=== PATIENT | male | born 1985 | race Caucasian/White ===

== ENCOUNTER 2017-05-05 23:53 | Inpatient (IN) | payer OTHER ==
[~2017-05-05] VITALS: Ht 162.6 cm; Wt 70.0 kg
[2017-05-06] VITALS (9 sets, daily range): BP systolic 118–156; BP diastolic 71–105; PULSE 84–99; RESP 16–19; TEMP 97.6–98.8; O2SAT 95–100
[2017-05-06] MEDS ORDERED: CLON.5 PO (00:13)
[2017-05-06] MEDS ORDERED: NAPR500T2 PO (00:13)
[2017-05-06] MEDS ORDERED: HYDR-3578 PO (00:13)
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
[2017-05-06] MEDS ORDERED: ONDANSETRON HCL 4 MG/2 ML VIAL IV PUSH ONE (00:30)
[2017-05-06] MEDS ORDERED: NS + KCL 20 MEQ INJ 1,000 ML IV SCH (00:30)
[2017-05-06] MEDS ORDERED: MORPHINE SULFATE 4 MG/ML INJ IV PUSH ONE (00:30)
[2017-05-06] MEDS ORDERED: ACETAMINOPHEN 500 MG CPLT PO PRN (03:45)
[2017-05-06] MEDS: NS + KCL 20 MEQ INJ 1,000 ML IV SCH ×3 (04:00→22:21)
[2017-05-06] MEDS: MORPHINE SULFATE 4 MG/ML INJ IV PUSH PRN ×7 (04:00→22:21)
[2017-05-06] MEDS ORDERED: DEXAMETHASONE SOD PHOS 20 MG/5 ML VIAL IV PUSH ONE (08:00)
--- NOTE | 2017-05-06 08:21 | PD.ORT.PN ---
Subjective Subjective Remarks Transfer from position or sitting due to complex left tibia plateau fracture. He is a long-leg splint. He has no other orthopedic complaints. He did not hit his head or lose consciousness Objective Vitals Vital Signs Date Time Temp Pulse Resp B/P (MAP) Pulse Ox O2 Delivery O2 Flow Rate FiO2 05/06/17 07:33 98.4 91 19 126/71 (89) 97 05/06/17 06:47 18 05/06/17 03:43 05/06/17 03:42 98.4 98 17 137/86 (103) 97 05/06/17 03:30 89 16 118/82 (94) 95 Room Air 05/06/17 00:55 93 16 124/74 (91) 96 Room Air 05/06/17 00:04 98.5 99 16 156/105 (122) 100 I/O 05/05/17 05/05/17 05/05/17 05/06/17 05/06/17 05/06/17 07:00 15:00 23:00 07:00 15:00 23:00 Intake Total 0 ml Balance 0 ml Intake Oral 0 ml # Voids 0 # Bowel Movements 0 Objective Remarks Left lower extremity: No pain with hip range of motion. Splint intact. Window was cut in Ashvin wrap to evaluate swelling. He has swelling of the +3 and compartments are semi-soft. His intact sensation distally and good capillary refills distally. He is able to move all his toes without any significant discomfort. Assessment & Plan Assessment and Plan Left bicondylar tibial plateau fracture Nonweightbearing left lower extremity Maintain splint Nothing by mouth after midnight We'll reevaluate swelling tomorrow. If swelling increases external fixation may be necessary before definitive fixation. Continue to ice and elevate left lower extremity Rios Arteaga Jr. May 06, 2017 08:21
[2017-05-06] MEDS ORDERED: CALCTAB19 PO (08:22)
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
[2017-05-06] MEDS: SODIUM CHLORIDE 0.9% FLUSH 10 ML FLUSH IV FLUSH SCH ×2 (09:00→20:37)
[2017-05-06] MEDS: ONDANSETRON HCL 4 MG/2 ML VIAL IV PUSH PRN ×2 (09:51→15:52)
[2017-05-06] MEDS: KETOROLAC TROMETHAMINE 30 MG/ML (IVP) VIAL IV PUSH SCH ×2 (12:17→17:27)
[2017-05-07] MEDS: KETOROLAC TROMETHAMINE 30 MG/ML (IVP) VIAL IV PUSH SCH ×4 (00:18→18:26)
[2017-05-07] MEDS ORDERED: SODIUM CHLORID 0.9% 500 ML IV PRN (01:00)
[2017-05-07] MEDS ORDERED: POVIDONE IODINE 5% (ANTISEPSIS KIT) 4 APPLICATIONS EACH NARE PRN (01:00)
[2017-05-07] MEDS ORDERED: CHLORHEXIDINE GLUCONATE 2 % 1 PACK (2 CLOTHS) TOPICAL PRN (01:00)
[2017-05-07] MEDS: MORPHINE SULFATE 4 MG/ML INJ IV PUSH PRN ×7 (01:37→21:48)
[2017-05-07 03:17] VITALS: BP 130/69; PULSE 81; RESP 17; TEMP 98.4; O2SAT 97
[2017-05-07] MEDS: LACTATED RINGER'S 1000 ML IV PRN (05:17)
[2017-05-07 07:20] LABS: PROTHROMBIN TIME - PATIENT 10.4 SEC (9.8-11.6)
[2017-05-07 07:28] LABS: BASOPHIL % 0.1 % (0.0-2.0); HEMATOCRIT 31.6 % (39.0-51.0); HEMOGLOBIN 10.8 GM/DL (13.0-17.0); LYMPH % 9.7 % (9.0-44.0); LYMPHOCYTE # 1.6 TH/MM3 (1.0-4.8); MEAN CELL VOLUME 101.1 FL (80.0-100.0); MEAN CORPUSCULAR HEMOGLOBIN 34.5 PG (27.0-34.0); MEAN CORPUSCULAR HGB CONC 34.1 % (32.0-36.0); MEAN PLATELET VOLUME 7.9 FL (7.0-11.0); MONO % 6.9 % (0.0-8.0); MONOCYTE # 1.2 TH/MM3 (0-0.9); NEUT % 83.3 % (16.0-70.0); PLATELET COUNT 393 TH/MM3 (150-450); RED BLOOD COUNT 3.13 MIL/MM3 (4.50-5.90); RED CELL DISTRIBUTION WIDTH 13.4 % (11.6-17.2); WHITE BLOOD COUNT 16.8 TH/MM3 (4.0-11.0)
[2017-05-07 08:00] VITALS: BP 130/72; PULSE 83; RESP 18; TEMP 97.3; O2SAT 95
--- NOTE | 2017-05-07 08:37 | PD.ORT.PN ---
Subjective Subjective Remarks Pain controlled. Has continue to ice and elevate his left lower extremity Objective Vitals Vital Signs Date Time Temp Pulse Resp B/P (MAP) Pulse Ox O2 Delivery O2 Flow Rate FiO2 05/07/17 06:05 18 05/07/17 05:22 18 05/07/17 03:17 98.4 81 17 130/69 (89) 97 05/07/17 00:08 Room Air 05/06/17 23:45 98.2 86 18 148/87 (107) 97 05/06/17 18:54 98.8 96 18 143/74 (97) 97 05/06/17 15:38 97.6 84 19 146/72 (96) 96 05/06/17 11:26 98.3 92 19 123/80 (94) 96 I/O 05/06/17 05/06/17 05/06/17 05/07/17 05/07/17 05/07/17 07:00 15:00 23:00 07:00 15:00 23:00 Intake Total 0 ml 950 ml 1000 ml 1020 ml Output Total 680 ml 1700 ml Balance 0 ml 270 ml 1000 ml -680 ml Intake Oral 0 ml 950 ml 1020 ml IV Total 1000 ml Output Urine Total 680 ml 1700 ml # Voids 0 # Bowel Movements 0 1 Result Diagram: 05/07/17 0630 Other Results Laboratory Tests Test 05/07/17 06:30 Prothromb Time International Ratio 1.0 RATIO Prothrombin Time 10.4 SEC (9.8-11.6) Objective Remarks Left lower extremity: No pain with hip range of motion. Splint intact. Window was cut in Ashvin wrap to evaluate swelling. He has swelling of the +2 and compartments are semi-soft. His intact sensation distally and good capillary refills distally. He is able to move all his toes without any significant discomfort. Assessment & Plan Assessment and Plan Left bicondylar tibial plateau fracture Nonweightbearing left lower extremity Maintain splint Resume diet then nothing by mouth after midnight tonight Swelling is continue to improve and with continued elevation and ice there is a good possibility that surgery may be proceeded with tomorrow. He understands that surgery will entail open reduction internal fixation with allograft bone graft Rios Arteaga Jr. May 07, 2017 08:37
[2017-05-07] MEDS: SODIUM CHLORIDE 0.9% FLUSH 10 ML FLUSH IV FLUSH SCH ×2 (09:00→21:00)
[2017-05-07] MEDS: NS + KCL 20 MEQ INJ 1,000 ML IV SCH ×2 (09:19→21:48)
[2017-05-07 11:54] VITALS: BP 127/60; PULSE 92; RESP 18; TEMP 98.3; O2SAT 97
[2017-05-07 16:00] VITALS: BP 124/68; PULSE 73; RESP 16; TEMP 98.4; O2SAT 96
--- NOTE | 2017-05-07 18:54 | RADRPT ---
EXAM DATE/TIME: 05/06/2017 01:38 [facility] COMPARISON: No previous studies available for comparison. INDICATIONS : Left knee pain and swelling after trauma.. RADIATION DOSE: 7.29 CTDIvol (mGy) MEDICAL HISTORY : None SURGICAL HISTORY : None. ENCOUNTER: Initial ACUITY: 1 day PAIN SCALE: 8/10 LOCATION: Left knee TECHNIQUE: Volumetric scanning and 3D reconstructions of the knee were performed. Using automated exposure cont rol and adjustment of the mA and/or kV according to patient size, radiation dose was kept as low as r easonably achievable to obtain optimal diagnostic quality images. DICOM format image data is availab le electronically for review and comparison. FINDINGS: There is a moderately comminuted fracture deformity involving the proximal tibia with multiple v ertical and oblique fracture lines. Multiple fracture lines extend into both tibial plateaus. The lar gest fracture is a vertical fracture which extends through the more inferior cortex medial tibial cor angelique approximately 7 cm below the joint. There is mild depression of the posterior lateral tibial plat eau of approximately 5 mm. The proximal fibula is intact. The patella and distal femur are intact. Mo derate joint effusion is present. There is surrounding soft tissue swelling. CONCLUSION: 1. Moderately comminuted fracture deformity on the proximal tibia with mild depression of a portion o f the posterior lateral tibial plateau. 2. Moderate joint effusion. Rios Holland MD on May 06, 2017 at 2:09 Board Certified Radiologist. This report was verified electronically.
[2017-05-07 20:00] VITALS: BP 143/73; PULSE 98; RESP 18; TEMP 98.7; O2SAT 97
[2017-05-07 23:34] VITALS: BP 142/68; PULSE 78; RESP 15; TEMP 97.8; O2SAT 98
[2017-05-08] MEDS: MORPHINE SULFATE 4 MG/ML INJ IV PUSH PRN ×7 (00:53→21:02)
[2017-05-08 07:51] VITALS: BP 135/88; PULSE 76; RESP 17; TEMP 98; O2SAT 96
[2017-05-08] MEDS: KETOROLAC TROMETHAMINE 30 MG/ML (IVP) VIAL IV PUSH SCH ×3 (07:52→18:04)
[2017-05-08] MEDS: SODIUM CHLORIDE 0.9% FLUSH 10 ML FLUSH IV FLUSH SCH ×2 (07:52→21:00)
[2017-05-08 11:53] VITALS: BP 124/58; PULSE 81; RESP 17; TEMP 97.8; O2SAT 96
--- NOTE | 2017-05-08 12:51 | PD.ORT.PN ---
Subjective Subjective Remarks s/p left tibial plateau fx. no changes. doing well. Objective Vitals Vital Signs Date Time Temp Pulse Resp B/P (MAP) Pulse Ox O2 Delivery O2 Flow Rate FiO2 05/08/17 11:53 97.8 81 17 124/58 (80) 96 05/08/17 07:51 98.0 76 17 135/88 (104) 96 05/07/17 23:34 97.8 78 15 142/68 (92) 98 05/07/17 20:00 98.7 98 18 143/73 (96) 97 05/07/17 16:00 98.4 73 16 124/68 (86) 96 I/O 05/07/17 05/07/17 05/07/17 05/08/17 05/08/17 05/08/17 07:00 15:00 23:00 07:00 15:00 23:00 Intake Total 1020 ml 1000 ml 300 ml Output Total 1700 ml 900 ml 900 ml Balance -680 ml -900 ml 1000 ml -600 ml Intake Oral 1020 ml IV Total 1000 ml 300 ml Output Urine Total 1700 ml 900 ml 900 ml # Voids 3 # Bowel Movements 1 Result Diagram: 05/07/17 0630 Objective Remarks Left lower extremity: No pain with hip range of motion. Splint intact. Window was cut in Ashvin wrap to evaluate swelling. He has swelling of the +2 and compartments are semi-soft. His intact sensation distally and good capillary refills distally. He is able to move all his toes without any significant discomfort. Assessment & Plan Assessment and Plan 1) Left bicondylar tibial plateau fracture Nonweightbearing left lower extremity Maintain splint Resume diet then nothing by mouth after midnight tonight Swelling is continue to improve and with continued elevation and ice there is a good possibility that surgery may be proceeded with tomorrow. He understands that surgery will entail open reduction internal fixation with allograft bone graft will plan for sunday Cory Haines/First Vivian ELI May 08, 2017 12:51
[2017-05-08] MEDS: NS + KCL 20 MEQ INJ 1,000 ML IV SCH ×2 (15:45→18:19)
[2017-05-08 16:00] VITALS: BP 131/66; PULSE 76; RESP 17; TEMP 98; O2SAT 96
[2017-05-08 20:18] VITALS: BP 141/80; PULSE 70; RESP 18; TEMP 98.2; O2SAT 98
[2017-05-09] MEDS: MORPHINE SULFATE 4 MG/ML INJ IV PUSH PRN ×7 (00:05→22:33)
[2017-05-09] MEDS: KETOROLAC TROMETHAMINE 30 MG/ML (IVP) VIAL IV PUSH SCH ×3 (00:05→12:00)
[2017-05-09 00:17] VITALS: BP_SYST 131; BP_SYST 152; BP_DIAS 64; BP_DIAS 84; PULSE 77; PULSE 92; RESP 18; TEMP 97.7; O2SAT 97; O2SAT 98
[2017-05-09] MEDS: NS + KCL 20 MEQ INJ 1,000 ML IV SCH ×3 (01:45→19:47)
[2017-05-09] MEDS ORDERED: XARE10TA PO (06:46)
[2017-05-09] MEDS ORDERED: WALKER/ADULT/FO1 MIS (06:46)
[2017-05-09] MEDS ORDERED: HYDR-3583 PO (06:46)
--- NOTE | 2017-05-09 06:51 | PD.ORT.PN ---
Subjective Subjective Remarks Pain controlled. Has continue to ice and elevate his left lower extremity Objective Vitals Vital Signs Date Time Temp Pulse Resp B/P (MAP) Pulse Ox O2 Delivery O2 Flow Rate FiO2 05/09/17 00:17 97.7 77 18 152/84 (106) 97 05/08/17 20:18 98.2 70 18 141/80 (100) 98 05/08/17 16:00 98.0 76 17 131/66 (87) 96 05/08/17 11:53 97.8 81 17 124/58 (80) 96 05/08/17 07:51 98.0 76 17 135/88 (104) 96 I/O 05/08/17 05/08/17 05/08/17 05/09/17 05/09/17 05/09/17 07:00 15:00 23:00 07:00 15:00 23:00 Intake Total 300 ml 480 ml 1000 ml 0 ml Output Total 900 ml 800 ml Balance -600 ml 480 ml 200 ml 0 ml Intake Oral 480 ml 0 ml IV Total 300 ml 1000 ml Output Urine Total 900 ml 800 ml # Voids 3 5 2 # Bowel Movements 0 0 Result Diagram: 05/07/17 0630 Objective Remarks Left lower extremity: No pain with hip range of motion. Splint intact. Window was cut in Ashvin wrap to evaluate swelling. He has swelling of the +2 and compartments are semi-soft. His intact sensation distally and good capillary refills distally. He is able to move all his toes without any significant discomfort. Assessment & Plan Assessment and Plan 1) Left bicondylar tibial plateau fracture Nonweightbearing left lower extremity Maintain splint Nothing by mouth Surgery this morning for open reduction internal fixation of left tibia plateau with allograft bone graft Rios Arteaga Jr. May 09, 2017 06:51
[2017-05-09 07:47] VITALS: BP 122/78; PULSE 69; RESP 18; TEMP 98.2; O2SAT 95
[2017-05-09] MEDS: LACTATED RINGER'S 1000 ML IV PRN (08:00)
[2017-05-09] MEDS: SODIUM CHLORIDE 0.9% FLUSH 10 ML FLUSH IV FLUSH PRN ×2 (08:06→09:03)
[2017-05-09] MEDS ORDERED: ACETAMINOPHEN 1000 MG/100 ML 100 ML IV ONE (08:57)
[2017-05-09] MEDS ORDERED: VANCOMYCIN HCL 1000 MG VIAL ONE (08:58)
[2017-05-09] MEDS ORDERED: ceFAZolin INJ 1,000 MG VIAL ONE (08:58)
[2017-05-09] MEDS ORDERED: GENTAMICIN SULFATE 80 MG/2 ML VIAL ONE (08:58)
[2017-05-09] MEDS ORDERED: SODIUM CHLOR 0.9% 250 ML INJ 250 ML ONE (08:58)
[2017-05-09] MEDS: SODIUM CHLORIDE 0.9% FLUSH 10 ML FLUSH IV FLUSH SCH ×2 (09:00→19:47)
[2017-05-09] MEDS ORDERED: MORPHINE SULFATE 4 MG/ML INJ IV ONE (09:30)
[2017-05-09] MEDS ORDERED: Post-op Orders (for Pharmacy) XX ONE (11:00)
[2017-05-09] MEDS ORDERED: MISCELLANEOUS NURSING INFORMATION XX PRN (11:00)
[2017-05-09] MEDS ORDERED: diphenhydrAMINE HCL 25 MG CAP PO PRN (11:00)
--- NOTE | 2017-05-09 11:00 | PD.OP ---
cc: Aristides Preciado MD Operative Report Date of Surgery: May 09, 2017 Preoperative Diagnosis: Comminuted left tibia bicondylar plateau fracture Postoperative Diagnosis: Procedure: Open reduction and internal fixation bicondylar left tibial plateau fracture Anesthesia: Gen. Surgeon: Aristides Preciado Clamp Jig Assembler(s): BEBE Willis PA-C The surgical procedure was assisted by my physician assistant manager trainee. My P.A. presence was necessary throughout this case for the manipulation and positioning of the surgical extremity. My P.A. was assisting me throughout the duration of this procedure. The skill set of a physician assistant manager trainee was medically necessary to complete this procedure. During the surgical case the surgical instrument technician was working at the back table and the physician assistant manager trainee was directly assisting me. Operation and Findings: This patient was seen and evaluated preoperatively. Patient sustained an injury resulting a left bicondylar tibial plateau fracture. Informed consent was obtained preoperatively after detailed discussion of the risks and benefits of surgery. Risk of surgery including bleeding, infection, nonunion, painful hardware, stiffness, loss of motion, arthritis, need for knee replacement, as well as medical complications including blood clots, stroke, heart attack, and were discussed. I also discussed the possibility of using allograft bone graft . Preoperatively the operative site was marked. Patient was brought to the operating room and placed on the operating room table. Intravenous sedation and general endotracheal anesthesia were administered. IV antibiotics were given and a time out procedure was preformed. The operative leg was prepped with alcohol followed by Hibiclens and draped in the usual sterile fashion. Procedure began with a 4-inch curvilinear incision over the anterolateral knee. Subcutaneous tissue was treated with Bovie. Iliotibial band was split in line with fibers. A sub-meniscal arthrotomy was created and the lateral articular surface was visualized. There was significant comminution and depression of the articular surface. A window was made in the metaphyseal region and bone tamps used to elevate the articular surface. Articular surface reduced into excellent alignment. K-wires were used for provisional fixation. At this point cancellous bone graft was packed under the articular surface using a bone tamp. The cortical fragments were now reduced. Next attention was turned to the medial tibial plateau fragment. Traction was applied. A clamp was placed around the medial plateau. The medial tibial plateau was reduced to the tibial shaft. The medial and lateral plateau fragments were manipulated to achieve appropriate rotational alignment. Multiple K wires result provisional fixation. Fluoroscopy revealed excellent alignment of fracture. A Synthes proximal tibial plate was selected. The plate was provisionally held with K- wires. 3.5 cortical screws were used compress plate to bone distally, and a periarticular clamp was used to compress the medial and lateral tibial plateau fracture fragments together. Multiple locking screws were now placed proximally. Additional screws were placed in the shaft. K-wires were removed. Final fluoroscopy showed excellent alignment of fracture with well- placed hardware. The incision was thoroughly irrigated. Arthrotomy and iliotibial band closed with #1 Vicryl,. Subcutaneous tissues closed with 3-0 Vicryl and skin was closed with young. Sterile dressings were applied. The patient was transferred to recovery in stable condition. Aristides Preciado MD May 09, 2017 11:00
[2017-05-09] MEDS ORDERED: DO NOT ADM ANY ANTICOAGULANT DRUGS PRN (11:15)
[2017-05-09] MEDS ORDERED: *MEPERIDINE 25 MG INJ VIAL PERIprocedural Use ONLY ONE (11:21)
[2017-05-09] MEDS ORDERED: *ONDANSETRON 4 MG VIAL PERIprocedural Use ONLY ONE (11:21)
[2017-05-09] MEDS ORDERED: MIDAZOLAM HCL 2 MG/2 ML VIAL ONE (11:33)
[2017-05-09] MEDS ORDERED: *morphine SULFATE 4 MG/ML PERIprocedure ONLY ONE (11:35)
[2017-05-09] MEDS: LACTATED RINGER'S 1000 ML INJ 1,000 ML IV SCH ×2 (11:50→19:56)
[2017-05-09] MEDS ORDERED: DEXAMETHASONE SOD PHOS 4 MG/ML VIAL IV ONE (12:00)
[2017-05-09] MEDS ORDERED: PROPOFOL 200 MG/20 ML AMP IV ONE (12:00)
[2017-05-09] MEDS ORDERED: LIDOCAINE HCL 1% PF 5 ML SYRINGE OTHER ONE (12:00)
[2017-05-09] MEDS ORDERED: STERILE WATER FOR INJECTION 20 ML VIAL IV ONE (12:00)
[2017-05-09] MEDS ORDERED: LACTATED RINGER'S 1000 ML INJ 1,000 ML IV ONE (12:00)
[2017-05-09] MEDS ORDERED: ONDANSETRON HCL 4 MG/2 ML VIAL IV ONE (12:00)
[2017-05-09] MEDS ORDERED: ROCURONIUM INJ 50 MG/5 ML SYRINGE IV PUSH ONE (12:00)
[2017-05-09] MEDS ORDERED: PHENYLEPH/NS 1000 MCG/10 ML SYR IV ONE (12:00)
--- NOTE | 2017-05-09 12:50 | RADRPT ---
EXAM DATE/TIME: 05/09/2017 10:36 [facility] COMPARISON: No previous studies available for comparison. INDICATIONS : Left knee/tibial plateau open reduction internal fixation. MEDICAL HISTORY : None. SURGICAL HISTORY : None. ENCOUNTER: Initial ACUITY: 1 day PAIN SCORE: Non-responsive. LOCATION: Left knee FINDINGS: Hardware is noted in good position within the left proximal tibia status post ORIF. CONCLUSION: Status post ORIF of left proximal tibial fracture. Matthias Natarajan MD on May 09, 2017 at 12:48 Board Certified Radiologist. This report was verified electronically.
[2017-05-09 12:51] VITALS: BP 160/97; PULSE 70; RESP 18; TEMP 98.1; O2SAT 95
[2017-05-09 15:56] VITALS: BP 143/87; PULSE 67; RESP 18; TEMP 98.2; O2SAT 95
[2017-05-09] MEDS: CEFAZOLIN INJ 2,000 MG in SODIUM CHLORIDE 0.9% INJ 100 ML IV SCH (19:43)
[2017-05-09] MEDS: DOCUSATE SODIUM 50 MG/SENNA 8.6 MG TAB PO SCH (19:46)
[2017-05-09 20:00] VITALS: BP 146/89; PULSE 90; RESP 18; TEMP 98; O2SAT 97
[2017-05-09] MEDS: VANCOMYCIN INJ 1,000 MG in SODIUM CHLOR 0.9% 250 ML INJ 250 ML IV SCH (22:31)
[2017-05-09 23:47] VITALS: BP 142/81; PULSE 82; RESP 17; TEMP 98.6; O2SAT 96
[2017-05-10] MEDS: ACETAMINOPHEN/HYDROcodone 325 MG/10 MG TAB PO PRN ×8 (01:43→23:23)
[2017-05-10] MEDS: CEFAZOLIN INJ 2,000 MG in SODIUM CHLORIDE 0.9% INJ 100 ML IV SCH ×3 (01:45→17:10)
[2017-05-10 03:45] VITALS: BP 146/88; PULSE 74; RESP 18; TEMP 98.4; O2SAT 96
[2017-05-10 04:39] LABS: HEMATOCRIT 31.6 % (39.0-51.0)
--- NOTE | 2017-05-10 06:30 | PD.ORT.PN ---
Subjective Subjective Remarks POD 1 s/p ORIF left tibial plateau doing well. resting comfortably. no complaints. Objective Vitals Vital Signs Date Time Temp Pulse Resp B/P (MAP) Pulse Ox O2 Delivery O2 Flow Rate FiO2 05/10/17 03:45 98.4 74 18 146/88 (107) 96 05/09/17 23:47 98.6 82 17 142/81 (101) 96 05/09/17 20:00 98.0 90 18 146/89 (108) 97 05/09/17 15:56 98.2 67 18 143/87 (105) 95 05/09/17 12:51 98.1 70 18 160/97 (118) 95 05/09/17 11:50 97.8 79 19 151/91 (111) 96 Room Air 05/09/17 11:45 79 20 138/85 (102) 98 Room Air 05/09/17 11:30 87 16 132/73 (92) 92 Room Air 05/09/17 11:15 97.6 90 20 151/94 (113) 98 Room Air 05/09/17 07:47 98.2 69 18 122/78 (93) 95 I/O 05/09/17 05/09/17 05/09/17 05/10/17 05/10/17 05/10/17 07:00 15:00 23:00 07:00 15:00 23:00 Intake Total 0 ml 1520 ml 360 ml Output Total 575 ml 1400 ml Balance 0 ml 945 ml -1040 ml Intake Oral 0 ml 320 ml 360 ml IV Total 0 ml Other 1200 ml Output Urine Total 500 ml 1400 ml Estimated Blood Loss 75 ml # Voids 2 3 # Bowel Movements 0 0 0 Result Diagram: 05/10/17 0425 Objective Remarks LLE; dressings clean and dry. intct. NVI distally with neg kimberly and strong dorsiflexion Assessment & Plan Assessment and Plan 1) Left bicondylar tibial plateau fracture s/p ORIF - POD 1 Nonweightbearing left lower extremity knee brace at all times except for PT PROM 0-90. no AROM, quad sets, leg lifts daily dressing changes POD 2 ortho cleared for DC when safe ambulating with walker f/u ortho 2 weeks Cory Haines/Scientific Writer SREEDHAR May 10, 2017 06:30
--- NOTE | 2017-05-10 06:31 | HHI.FF ---
Face to Face Verification Diagnosis: (1) Tibial plateau fracture, left Physical Therapy Knee: Knee fracture, Protocol: Left, Non weight bearing Canvas Knee Splint: Remove only with PT Left LE Weight Bearing: Non WB, No Strengthening, No Quad Sets Left LE Range of Motion: Passive ROM (0-90deg) Nursing Dressing Changes: Daily dressing change, Ashvin wrap, 4x4s, Xeroform I have seen patient Олег Perkins on 05/10/17. My clinical findings support the need for the requested home health care services because: Ltd mobility - disease progression I certify that my clinical findings support that this patient is homebound because: Post-op weakness Cory Haines/First Vivian ELI May 10, 2017 06:31
[2017-05-10] MEDS: SODIUM CHLORIDE 0.9% FLUSH 10 ML FLUSH IV FLUSH SCH ×2 (08:11→20:24)
[2017-05-10] MEDS: CHOLECALCIFEROL (VIT D3) 1000 UNIT TAB PO SCH (08:11)
[2017-05-10] MEDS: DOCUSATE SODIUM 50 MG/SENNA 8.6 MG TAB PO SCH ×2 (08:11→20:23)
[2017-05-10] MEDS: ENOXAPARIN SODIUM 40 MG/0.4 ML SYRINGE SQ SCH (08:12)
[2017-05-10] MEDS: NS + KCL 20 MEQ INJ 1,000 ML IV SCH ×2 (08:12→17:12)
[2017-05-10 08:17] VITALS: O2SAT 96
[2017-05-10] MEDS: MORPHINE SULFATE 4 MG/ML INJ IV PUSH PRN ×2 (09:25→12:27)
[2017-05-10] MEDS: VANCOMYCIN INJ 1,000 MG in SODIUM CHLOR 0.9% 250 ML INJ 250 ML IV SCH ×2 (10:58→20:23)
[2017-05-10 11:53] VITALS: BP 116/71; PULSE 76; RESP 18; TEMP 99.5; O2SAT 96
[2017-05-10] MEDS: LACTATED RINGER'S 1000 ML INJ 1,000 ML IV SCH ×2 (11:56→21:24)
[2017-05-10 15:29] VITALS: BP 118/72; PULSE 83; RESP 18; TEMP 98.1; O2SAT 98
[2017-05-10 18:30] VITALS: BP 142/71; PULSE 83; RESP 17; TEMP 97.9; O2SAT 94
[2017-05-10 23:40] VITALS: BP 132/81; PULSE 82; RESP 17; TEMP 98.2; O2SAT 97
[2017-05-11] MEDS: CEFAZOLIN INJ 2,000 MG in SODIUM CHLORIDE 0.9% INJ 100 ML IV SCH ×2 (01:01→09:01)
[2017-05-11] MEDS: MORPHINE SULFATE 4 MG/ML INJ IV PUSH PRN (01:02)
[2017-05-11] MEDS: NS + KCL 20 MEQ INJ 1,000 ML IV SCH (01:12)
[2017-05-11] MEDS: ACETAMINOPHEN/HYDROcodone 325 MG/10 MG TAB PO PRN ×2 (02:43→05:52)
[2017-05-11] MEDS ORDERED: BACITRACIN TOP OINT 15 GM TUBE TOPICAL PRN (04:30)
--- NOTE | 2017-05-11 06:44 | PD.ORT.PN ---
Subjective Subjective Remarks POD 2 s/p ORIF left tibial plateau doing well. resting comfortably. no complaints. Objective Vitals Vital Signs Date Time Temp Pulse Resp B/P (MAP) Pulse Ox O2 Delivery O2 Flow Rate FiO2 05/10/17 23:40 98.2 82 17 132/81 (98) 97 05/10/17 20:38 21 05/10/17 18:30 97.9 83 17 142/71 (94) 94 05/10/17 15:29 98.1 83 18 118/72 (87) 98 05/10/17 11:53 99.5 76 18 116/71 (86) 96 05/10/17 08:17 96 21 I/O 05/10/17 05/10/17 05/10/17 05/11/17 05/11/17 05/11/17 07:00 15:00 23:00 07:00 15:00 23:00 Intake Total 360 ml 600 ml 1500 ml Output Total 1400 ml 1000 ml Balance -1040 ml 600 ml 500 ml Intake Oral 360 ml 600 ml 1500 ml Output Urine Total 1400 ml 1000 ml # Voids 3 # Bowel Movements 0 0 Result Diagram: 05/10/17 0425 Objective Remarks LLE; dressings clean and dry. intct. NVI distally with neg kimberly and strong dorsiflexion Assessment & Plan Assessment and Plan 1) Left bicondylar tibial plateau fracture s/p ORIF - POD 2 Nonweightbearing left lower extremity knee brace at all times except for PT PROM 0-90. no AROM, quad sets, leg lifts daily dressing changes POD 2 ortho cleared for DC when safe ambulating with walker f/u ortho 2 weeks Cory Haines/[employer] SREEDHAR May 11, 2017 06:44
[2017-05-11 08:00] VITALS: BP 132/80; PULSE 72; RESP 16; TEMP 98.4; O2SAT 97
[2017-05-11] MEDS: CHOLECALCIFEROL (VIT D3) 1000 UNIT TAB PO SCH (09:01)
[2017-05-11] MEDS: DOCUSATE SODIUM 50 MG/SENNA 8.6 MG TAB PO SCH (09:01)
[2017-05-11] MEDS: ENOXAPARIN SODIUM 40 MG/0.4 ML SYRINGE SQ SCH (09:01)
[2017-05-11] MEDS: SODIUM CHLORIDE 0.9% FLUSH 10 ML FLUSH IV FLUSH SCH (09:01)
== END 2017-05-11 11:10 | disposition home or self-care (01) | DRG 494 ==
LOC: NEPE 23:53 → NEDA 05-06 03:11 → N06A 05-06 03:44
PROVIDERS: ADMIT Orthopaedic Surgery Orthopaedic Trauma; ATTEND Orthopaedic Surgery Orthopaedic Trauma
PROC: 0QSH04Z Reposition Left Tibia with Internal Fixation Device, Open Approach (ICD-10-PCS; principal; 2017-05-09 09:25)
DX: S82.142A Displaced bicondylar fracture of left tibia, initial encounter for closed fracture (principal); F17.200 Nicotine dependence, unspecified, uncomplicated; Z96.641 Presence of right artificial hip joint; Z91.010 Allergy to peanuts; W17.89XA Other fall from one level to another, initial encounter
CPT/HCPCS: 73560; 73700; 76000; 82652; 85014; 85018; 85025; 85610; 85730; 94150; 96374; 96375; 99285; C1713; J0131; J0690; J1100; J1580; J1650; J1885; J2175; J2250; J2270; J2370; J2405; J3010; J3370; J3480; J7050; J7120; L1830